=== PATIENT | female | born 1980 ===

== ENCOUNTER → 2017-10-08 | Outpatient (CLI) | payer OTHER | END | disposition home or self-care (01) | LOC: PLD 13:05 → LAB SHORT 13:05 | DX: D06.0 Carcinoma in situ of endocervix (principal) | CPT/HCPCS: 88305; 88342 ==

== ENCOUNTER → 2018-01-15 | Outpatient (CLI) | payer OTHER | LOC: PLD 13:12 → LAB SHORT 13:12 | DX: D06.9 Carcinoma in situ of cervix, unspecified (principal) | CPT/HCPCS: 88307 ==

== ENCOUNTER → 2018-07-14 | Outpatient (CLI) | payer OTHER ==
[2018-07-15 15:07] LABS: HPV 16 Negative (Negative); HPV 18 Negative (Negative); HPV OTHER HR TYPES Negative (Negative)
== END | disposition home or self-care (01) ==
LOC: LAB 11:29 → LAB SHORT 11:29
PROVIDERS: Obstetrics & Gynecology
DX: Z01.419 Encounter for gynecological examination (general) (routine) without abnormal findings (principal)
CPT/HCPCS: 87624; G0123